=== PATIENT | male | born 1985 | race Caucasian/White ===

== ENCOUNTER 2018-07-16 20:49 | Emergency (ER) | payer SELFPAY ==
[2018-07-16 21:16] VITALS: BP 123/85; PULSE 75; RESP 20; TEMP 98.8; O2SAT 100
[2018-07-16 22:10] LABS: SQUAMOUS EPITHIAL < 1 /hpf (0-5); URINE BILIRUBIN NEGATIVE (NEGATIVE); URINE BLOOD 1+ (NEGATIVE); URINE CLARITY Hazy (Clear); URINE COLOR Yellow (YELLOW); URINE GLUCOSE (UA) NORMAL (Normal); URINE LEUKOCYTE ESTERASE 1+ Leu/uL (Negative); URINE PROTEIN NEGATIVE (NEGATIVE)
[2018-07-16 22:11] LABS: URINE BACTERIA FEW (<OCC)
--- NOTE | 2018-07-16 22:30 | C.PDOC ---
History Of Present Illness 33-year-old male presents to the ED for evaluation of dysuria which began two days ago. Patient noted slight blood in his urine today, which has prompted this visit. Patient denies being sexually active, stating he was last active many months ago. Patient denies fever, chills, back pain, penile discharge, testicular pain/swelling, or history of kidney stones. Time Seen by Provider: 07/16/18 21:14 Chief Complaint (Nursing): Male Genitourinary History Per: Patient History/Exam Limitations: no limitations Onset/Duration Of Symptoms: Days (2) Current Symptoms Are (Timing): Still Present Associated Symptoms: Urinary Symptoms (dysuria, hematuria ). denies: Fever, Chills, Back Pain Additional History Per: Patient Past Medical History Reviewed: Historical Data, Nursing Documentation, Vital Signs Vital Signs: Last Vital Signs Temp 98.8 F 07/16/18 21:02 Pulse 75 07/16/18 21:02 Resp 20 07/16/18 21:02 BP 123/85 07/16/18 21:02 Pulse Ox 100 07/16/18 21:02 - Medical History PMH: No Chronic Diseases Surgical History: No Surg Hx Family History: States: Unknown Family Hx - Social History Hx Alcohol Use: No Hx Substance Use: No Review Of Systems Constitutional: Negative for: Fever, Chills, Weakness Gastrointestinal: Negative for: Nausea, Vomiting, Diarrhea Genitourinary: Positive for: Dysuria, Hematuria. Negative for: Penile Discharge, Penile Pain, Other (testicular pain/swelling ) Musculoskeletal: Negative for: Back Pain Skin: Negative for: Rash Physical Exam - Physical Exam Appears: Well, Non-toxic, No Acute Distress Skin: Warm, Dry, No Rash Head: Atraumatic, Normacephalic Lymphatic: No Inguinal Node Tenderness, No Other (inguinal node enlargement ) Chest: Symmetrical Gastrointestinal/Abdominal: Soft, No Tenderness, No Guarding, No Rebound Back: No CVA Tenderness, Other (ambulating with steady upright gait) Extremity: Normal ROM Extremity: Bilateral: Atraumatic Neurological/Psych: Oriented x3 ED Course And Treatment - Laboratory Results Lab Results: Urine Color Yellow (YELLOW) 07/16/18 21:52 Urine Clarity Hazy (Clear) 07/16/18 21:52 Urine pH 5.0 (5.0-8.0) 07/16/18 21:52 Ur Specific [place] 1.025 (1.003-1.030) 07/16/18 21:52 Urine Protein Negative mg/dL (NEGATIVE) 07/16/18 21:52 Urine Glucose (UA) Normal mg/dL (Normal) 07/16/18 21:52 Urine Ketones Negative mg/dL (NEGATIVE) 07/16/18 21:52 Urine Blood 1+ (NEGATIVE) H 07/16/18 21:52 Urine Nitrate Negative (NEGATIVE) 07/16/18 21:52 Urine Bilirubin Negative (NEGATIVE) 07/16/18 21:52 Urine Urobilinogen 2.0 mg/dL (0.2-1.0) 07/16/18 21:52 Ur Leukocyte Esterase 1+ Ana/uL (Negative) H 07/16/18 21:52 Urine WBC (Auto) 72 /hpf (0-5) H 07/16/18 21:52 Urine RBC (Auto) 23 /hpf (0-3) H 07/16/18 21:52 Ur Squamous Epith Cells < 1 /hpf (0-5) 07/16/18 21:52 Urine Bacteria Few (<OCC) H 07/16/18 21:52 O2 Sat by Pulse Oximetry: 100 (on RA) Pulse Ox Interpretation: Normal Medical Decision Making Medical Decision Making: Progress: Urinalysis and GC/chlamydia swab ordered. Urinalysis results show signs of infection. Plan is to treat for urinary tract infection while awaiting culture results. On reassessment, patient is resting comfortably, showing no signs of distress and is stable for discharge. Patient is advised to follow up with his PMD within 1-2 days for further evaluation. Disposition Counseled Patient/Family Regarding: Studies Performed, Diagnosis, Need For Followup, Rx Given - Disposition Referrals: Lyle Perez MD [Staff Provider] - Disposition: HOME/ ROUTINE Disposition Time: 22:29 Condition: STABLE Prescriptions: Cefpodoxime [Vantin] 200 mg PO BID #10 tab Instructions: Urinary Tract Infection, Adult (DC) Forms: [facility] (Japanese), General Discharge Instructions - Clinical Impression Clinical Impression: Urinary tract infection - PA / [employer]PER[employer] / Resident Statement MD/DO has reviewed & agrees with the documentation as recorded. - Scribe Statement The provider has reviewed the documentation as recorded by the Scribe (Alba Butts) All medical record entries made by the Scribe were at my direction and personally dictated by me. I have reviewed the chart and agree that the record accurately reflects my personal performance of the history, physical exam, medical decision making, and the department course for this patient. I have also personally directed, reviewed, and agree with the discharge instructions and disposition.
== END 2018-07-16 22:39 | disposition home or self-care (01) ==
LOC: C.ER 20:49
DX: N39.0 Urinary tract infection, site not specified (principal)